=== PATIENT | male | born 1990 | race Caucasian/White ===

== ENCOUNTER 2020-10-22 05:29 | Emergency (ER) | payer OTHER ==
[~2020-10-22 05:29] MED LIST: BENTYL 10MG CAP10 MG PO; BENTYL 20MG TAB20 MG PO; CLARITIN10 M2 PO; FLEXERIL 10 MG10 MG PO; METFORMIN HCL500 MG PO; PROTONIX40 MG PO; TENORMIN 50 MG50 MG PO; VENTOLIN HFA 66.7 GM INH; Voltaren Gel 1 % TOP; ZESTORETIC 10-1 EACH PO; ZOFRAN ODT 4 MG4 MG PO; ZOLOFT50 MG PO
[2020-10-22 05:52] LABS: HEMOGLOBIN 14.1 gm/dl (14.0-17.5); RED BLOOD COUNT 4.92 M/UL (4.20-5.50); WHITE BLOOD COUNT 14.6 K/UL (4.5-11.0)
[2020-10-22 06:23] LABS: BUN/CREATININE RATIO 20 (0-10)
== END 2020-10-22 09:54 | disposition home or self-care (01) ==
LOC: ER1 05:29
PROVIDERS: Emergency Medicine
DX: R10.11 Right upper quadrant pain (principal); R10.31 Right lower quadrant pain; R11.2 Nausea with vomiting, unspecified; R19.7 Diarrhea, unspecified; R63.0 Anorexia; E11.9 Type 2 diabetes mellitus without complications; Z79.84 Long term (current) use of oral hypoglycemic drugs
CPT/HCPCS: 80053; 81001; 82550; 82553; 82962; 83690; 83874; 84484; 85025; 93005; 96374; 99284; J2270; J2405; J7030; Q9967

== ENCOUNTER 2020-12-05 16:19 | Emergency (ER) | payer OTHER ==
[2020-12-05 18:30] LABS: HEMOGLOBIN 14.5 gm/dl (14.0-17.5); RED BLOOD COUNT 5.13 M/UL (4.20-5.50); WHITE BLOOD COUNT 6.8 K/UL (4.5-11.0)
[2020-12-05 18:40] LABS: BUN/CREATININE RATIO 17 (0-10)
[2020-12-05] MEDS ORDERED: ATROVENT-HFA12.9 GM INH (21:22)
== END 2020-12-05 23:07 | disposition home or self-care (01) ==
LOC: ER1 16:19
PROVIDERS: Physician Assistant Medical
DX: U07.1 COVID-19 (principal); J45.909 Unspecified asthma, uncomplicated; E11.9 Type 2 diabetes mellitus without complications; I10 Essential (primary) hypertension; F17.210 Nicotine dependence, cigarettes, uncomplicated; Z79.899 Other long term (current) drug therapy
CPT/HCPCS: 36415; 71045; 80053; 84484; 85025; 85379; 93005; 96374; 99284; J2405; M0239

== ENCOUNTER 2020-12-07 05:01 | Emergency (ER) | payer OTHER ==
[~2020-12-07 05:01] MED LIST changes: +ATROVENT-HFA12.9 GM INH
[2020-12-07 05:47] LABS: RED BLOOD COUNT 5.17 M/UL (4.20-5.50); WHITE BLOOD COUNT 7.8 K/UL (4.5-11.0)
[2020-12-07 05:57] LABS: BUN/CREATININE RATIO 17 (0-10)
[2020-12-07] MEDS ORDERED: PHENERGAN 25 MG25 M1 PO (06:40)
== END 2020-12-07 07:00 | disposition home or self-care (01) ==
LOC: ER1 05:01
PROVIDERS: Emergency Medicine
DX: U07.1 COVID-19 (principal); E11.9 Type 2 diabetes mellitus without complications; I10 Essential (primary) hypertension; F17.210 Nicotine dependence, cigarettes, uncomplicated
CPT/HCPCS: 36415; 80048; 85025; 96374; 96375; 99284; J2405; J2550; J7030